=== PATIENT | male | born 1960 | race African-American/Black ===

== ENCOUNTER 2021-03-29 08:54 | Emergency (ER) | payer MEDICAID ==
[~2021-03-29] VITALS: Ht 172.7 cm; Wt 79.5 kg
[2021-03-29] MEDS ORDERED: HYDR25TA2 PO (08:59)
[2021-03-29] MEDS ORDERED: AMLO5TAB66 PO (08:59)
[2021-03-29] MEDS ORDERED: DICLOFENAC SODIUM 1% 100 GM GEL [4GM] TP ONE (09:30)
[2021-03-29] MEDS ORDERED: LIDOCAINE 5% TRANSDERMAL PATCH TD ONE (09:30)
[2021-03-29] MEDS ORDERED: KETOROLAC TROMETHAMINE 30 MG/ML VIAL IM ONE (09:30)
[2021-03-29] MEDS ORDERED: ACETAMINOPHEN 500 MG TABLET PO ONE (09:30)
[2021-03-29 11:41] VITALS: BP 129/75
== END 2021-03-29 11:43 | disposition home or self-care (01) ==
LOC: EMS 08:54
DX: M25.572 Pain in left ankle and joints of left foot (principal); I10 Essential (primary) hypertension; F17.210 Nicotine dependence, cigarettes, uncomplicated; Z88.5 Allergy status to narcotic agent
CPT/HCPCS: 73610; 96372; 99284; J1885